=== PATIENT | female | born 1985 | race Hispanic/Latino ===

== ENCOUNTER 2019-04-15 14:28 | Emergency (ER) | payer OTHER ==
[2019-04-15 14:53] LABS: Bilirubin Negative (Negative); Blood, Urine Negative (Negative); Clarity Clear (Clear); Glucose, Urine (Dipstick) Normal (Negative); Leukocyte Negative Leu/uL (Negative); Nitrite Negative (Negative); Protein, Urine (Dipstick) Negative (Neg-Trace); Urobilinogen Normal mg/dL (Less than 2)
--- NOTE | 2019-04-15 15:33 | ULT ---
ULTRASOUND OBSTETRICAL COMPLETE: DATE: 04/15/2019 HISTORY: 33-year-old female with lower abdominal pain FINDINGS: number: [place] lie: Variable Maternal cervix: 3.27cm. Closed. Placenta: Anterior. No placenta previa or abruptio placentae. Amniotic fluid volume: Subjectively normal. DARLING not measured. anatomy not evaluated biometry: Biparietal diameter (BPD): 4.3 cm 18 w 6 d Head circumference (HC): 16.1 cm 18 w 6 d Abdominal circumference (AC): 13.6 cm 19 w 0 d Femur length (FL): 2.8 cm 18 w 3 d Average ultrasound age (AUA): 18 w 5 d Estimated date of delivery (ANA): 09/11/2019 Estimated weight (EFW): 255 g +/- 38 g IMPRESSION: 1) Live 2nd trimester intrauterine gestation. 2) Estimated gestational age of 18 weeks, 5 days 3) variable lie. 4) no evidence of complications.
[2019-04-15 16:01] LABS: #Eosinphils 0.1 thou/uL (0.0-0.7); #Lymphocytes 1.9 thou/uL (1.20-3.40); #Monocytes 0.5 thou/uL (0.11-0.59); #Neutrophils 7.3 thou/uL (1.40-6.50); %Basophils 0.2 % (0.0-1.0); %Eosinophils 0.7 % (0.0-10.0); %Lymphocytes 19.1 % (21.0-51.0); %Monocytes 5.2 % (0.0-10.0); %Neutrophils 74.8 % (42.0-75.0); Hemoglobin 13.4 g/dL (12.0-16.0); Mean Corpuscular HGB CONC 35.3 g/dL (32.0-36.0); Mean Corpuscular Hemoglobin 31.2 pg (27.0-31.0); Mean Corpuscular Volume 88.2 fL (78.0-98.0); Mean Platelet Volume 7.6 fL (7.4-10.4); Platelet Count 225 thou/uL (130-400); RBC Distribution Width 12.3 % (11.5-14.5); Red Blood Cell (RBC) Count 4.31 mill/uL (4.20-5.40); White Blood Cell (WBC) Count 9.7 thou/uL (4.8-10.8)
[2019-04-15] MEDS ORDERED: Acetaminophen 325 MG TAB ONE (17:08)
== END 2019-04-15 17:39 | disposition home or self-care (01) ==
LOC: ERS 14:28
DX: O99.89 Other specified diseases and conditions complicating pregnancy, childbirth and the puerperium (principal); R10.30 Lower abdominal pain, unspecified; Z3A.17 17 weeks gestation of pregnancy
CPT/HCPCS: 36415; 76815; 81003; 84702; 85025; 86900; 86901